=== PATIENT | male | born 1960 ===

== ENCOUNTER 2021-08-14 13:08 | Emergency (ER) | payer MEDICAID ==
[~2021-08-14] VITALS: Ht 162.6 cm; Wt 72.7 kg
[2021-08-14 13:25] VITALS: TEMP 97.5
[2021-08-14 14:35] LABS: BASO # 0.1 K/mm3 (0.0-0.2); BASO % 1.3 % (0.0-2.0); EOS # 0.2 K/mm3 (0.0-0.7); EOS % 2.5 % (0.0-4.0); GRAN # 2.9 K/mm3 (1.4-6.5); GRAN % 42.6 % (42.2-75.2); HEMOGLOBIN 14.6 g/dl (13.5-18.0); LYMPH # 3.2 K/mm3 (1.2-3.4); MEAN CELL VOLUME 91 fl (80.0-100.0); MEAN CORPUSCULAR HEMOGLOBIN 32 pg (27-31); MEAN CORPUSCULAR HGB CONC 35 g/dl (33.0-37.0); MEAN PLATELET VOLUME 9.6 fl (7.4-10.4); MONO # 0.4 K/mm3 (0.1-0.6); MONO % 6.5 % (1.7-9.3); PLATELET COUNT 179 K/mm3 (130-400); RED BLOOD COUNT 4.62 M/mm3 (4.20-5.60)
[2021-08-14 14:56] LABS: ALBUMIN 4.5 gm/dL (3.4-4.8); BILIRUBIN,TOTAL 0.8 mg/dL (0.2-1.2); CALCIUM 10.4 mg/dL (8.4-10.2); CREATININE, serum 0.71 mg/dL (0.72-1.25); POTASSIUM 4.9 mmol/L (3.5-4.5); TOTAL PROTEIN 8.4 gm/dL (6.2-8.1)
[2021-08-14] MEDS ORDERED: IPRATROPIUM BROM3 M1 IH (15:58)
[2021-08-14] MEDS ORDERED: PREDNISONE20 MG PO (15:58)
[2021-08-14] MEDS ORDERED: SINGULAIR 110 MG/TAB PO (15:58)
[2021-08-14] MEDS ORDERED: VENTOLIN0.09 MG IH (15:58)
[2021-08-14 16:06] VITALS: BP 147/102; PULSE 81
== END 2021-08-14 16:06 | disposition home or self-care (01) ==
LOC: COL.ER 13:08
PROVIDERS: Physician Assistant
DX: J45.901 Unspecified asthma with (acute) exacerbation (principal); Z20.822 Contact with and (suspected) exposure to COVID-19; Z87.891 Personal history of nicotine dependence
CPT/HCPCS: J1100; J7030

== ENCOUNTER 2021-09-05 13:11 | Emergency (ER) | payer MEDICAID ==
[~2021-09-05] VITALS: Ht 162.6 cm; Wt 70.5 kg
[~2021-09-05 13:11] MED LIST: IPRATROPIUM BROM3 M1 IH; PREDNISONE20 MG PO; SINGULAIR 110 MG/TAB PO; VENTOLIN0.09 MG IH
[2021-09-05 13:31] VITALS: TEMP 98.1
[2021-09-05 14:43] LABS: BASO # 0.1 K/mm3 (0.0-0.2); EOS # 0.1 K/mm3 (0.0-0.7); EOS % 0.6 % (0.0-4.0); GRAN % 51.2 % (42.2-75.2); HEMATOCRIT 43.6 % (42.0-52.0); HEMOGLOBIN 15.2 g/dl (13.5-18.0); LYMPH # 3.1 K/mm3 (1.2-3.4); MEAN CELL VOLUME 90 fl (80.0-100.0); MEAN CORPUSCULAR HEMOGLOBIN 32 pg (27-31); MEAN CORPUSCULAR HGB CONC 35 g/dl (33.0-37.0); MEAN PLATELET VOLUME 9.4 fl (7.4-10.4); MONO # 0.5 K/mm3 (0.1-0.6); MONO % 6.9 % (1.7-9.3); PLATELET COUNT 171 K/mm3 (130-400); RED BLOOD COUNT 4.83 M/mm3 (4.20-5.60); REDCELL DISTRIBUTION WIDTH-CV 12.6 % (11.5-14.5)
[2021-09-05 15:03] LABS: ALBUMIN 4.3 gm/dL (3.4-4.8); BILIRUBIN,TOTAL 0.5 mg/dL (0.2-1.2); C-REACTIVE PROTEIN 0.04 mg/dL (0.00-0.50); CALCIUM 10.2 mg/dL (8.4-10.2); CREATININE, serum 0.72 mg/dL (0.72-1.25); MAGNESIUM 1.9 mg/dL (1.6-2.6); POTASSIUM 4.5 mmol/L (3.5-4.5); TOTAL PROTEIN 7.8 gm/dL (6.2-8.1)
[2021-09-05 15:07] LABS: COLLECTION METHOD CLEAN CATCH
[2021-09-05 15:13] LABS: PH 7 (5-8); SQUAMOUS EPITHELIAL None Seen /hpf (0-10); URINE APPEARANCE Clear (CLEAR/HAZY); URINE BACTERIA Rare /hpf (NONE SEEN); URINE BILIRUBIN Negative (NEGATIVE); URINE BLOOD Negative (NEGATIVE); URINE COLOR Yellow (YELLOW); URINE GLUCOSE Negative (NEGATIVE); URINE KETONE Negative (NEGATIVE); URINE LEUKOCYTE ESTERASE Negative (NEGATIVE); URINE NITRATE Negative (NEGATIVE); URINE PROTEIN(semi-quant) Negative (NEGATIVE); URINE RBC 0-2 /hpf (0-2); URINE UROBILINOGEN Negative (NEGATIVE)
[2021-09-05] MEDS ORDERED: PEPCID 20MG TAB20 MG PO (16:54)
[2021-09-05 17:02] VITALS: BP 118/92; PULSE 96
== END 2021-09-05 17:07 | disposition home or self-care (01) ==
LOC: COL.ER 13:11
PROVIDERS: Emergency Medicine
DX: K29.70 Gastritis, unspecified, without bleeding (principal); Z87.891 Personal history of nicotine dependence
CPT/HCPCS: Q9967

== ENCOUNTER 2021-09-15 12:30 | Emergency (ER) | payer MEDICAID ==
[~2021-09-15] VITALS: Ht 162.6 cm; Wt 68.2 kg
[~2021-09-15 12:30] MED LIST changes: +PEPCID 20MG TAB20 MG PO
[2021-09-15 12:57] VITALS: TEMP 97.6
[2021-09-15 13:38] LABS: BASO # 0.1 K/mm3 (0.0-0.2); BASO % 1.2 % (0.0-2.0); EOS # 0.1 K/mm3 (0.0-0.7); GRAN # 4.5 K/mm3 (1.4-6.5); GRAN % 53.5 % (42.2-75.2); HEMATOCRIT 43.4 % (42.0-52.0); LYMPH # 2.9 K/mm3 (1.2-3.4); LYMPH % 34.8 % (20.0-51.0); MEAN CELL VOLUME 91 fl (80.0-100.0); MEAN CORPUSCULAR HEMOGLOBIN 32 pg (27-31); MEAN CORPUSCULAR HGB CONC 35 g/dl (33.0-37.0); MEAN PLATELET VOLUME 9.8 fl (7.4-10.4); MONO # 0.8 K/mm3 (0.1-0.6); MONO % 9.3 % (1.7-9.3); PLATELET COUNT 241 K/mm3 (130-400); RED BLOOD COUNT 4.75 M/mm3 (4.20-5.60); REDCELL DISTRIBUTION WIDTH-CV 12.9 % (11.5-14.5)
[2021-09-15 13:50] LABS: ALANINE AMINOTRANSFERASE 40 U/L (0-55); ALBUMIN 4.5 gm/dL (3.4-4.8); ALKALINE PHOSPHATASE 89 U/L (40-150); ANION GAP 12 mmol/L (7-16); AST,SGOT 45 U/L (5-34); BILIRUBIN,TOTAL 0.7 mg/dL (0.2-1.2); BLOOD UREA NITROGEN 3 mg/dL (8-26); CALCIUM 9.7 mg/dL (8.4-10.2); CARBON DIOXIDE 21 mmol/L (23-31); CHLORIDE 97 mmol/L (98-107); CREATININE, serum 0.74 mg/dL (0.72-1.25); GLUCOSE 115 mg/dL (70-99); LIPASE 27 U/L (8-78); POTASSIUM 4.5 mmol/L (3.5-4.5); SODIUM 130 mmol/L (136-145)
[2021-09-15 13:56] LABS: TROPONIN-I < 0.010 ng/mL (0.00-0.033)
[2021-09-15 14:37] LABS: COLLECTION METHOD RANDOM VOIDED
[2021-09-15 14:54] LABS: PH 8 (5-8); SQUAMOUS EPITHELIAL None Seen /hpf (0-10); URINE APPEARANCE Clear (CLEAR/HAZY); URINE BACTERIA None Seen /hpf (NONE SEEN); URINE BILIRUBIN Negative (NEGATIVE); URINE BLOOD Negative (NEGATIVE); URINE COLOR Straw (YELLOW); URINE GLUCOSE Negative (NEGATIVE); URINE KETONE Negative (NEGATIVE); URINE LEUKOCYTE ESTERASE Negative (NEGATIVE); URINE NITRATE Negative (NEGATIVE); URINE PROTEIN(semi-quant) Negative (NEGATIVE); URINE RBC None Seen /hpf (0-2); URINE UROBILINOGEN Negative (NEGATIVE); URINE WBC 0-2 /hpf (0-2)
[2021-09-15 16:51] VITALS: BP 134/88; PULSE 100
== END 2021-09-15 16:43 | disposition home or self-care (01) ==
LOC: COL.ER 12:30
PROVIDERS: Emergency Medicine
DX: R06.02 Shortness of breath (principal); E87.1 Hypo-osmolality and hyponatremia; R16.0 Hepatomegaly, not elsewhere classified; R07.9 Chest pain, unspecified; R00.0 Tachycardia, unspecified; R10.9 Unspecified abdominal pain; R42 Dizziness and giddiness; Z95.9 Presence of cardiac and vascular implant and graft, unspecified; Z87.891 Personal history of nicotine dependence
CPT/HCPCS: J7030; J7120; J8540; Q9967

== ENCOUNTER 2021-09-20 13:54 | Emergency (ER) | payer MEDICAID ==
[~2021-09-20] VITALS: Ht 162.6 cm; Wt 68.2 kg
[2021-09-20 14:21] VITALS: TEMP 97.8
[2021-09-20 14:58] LABS: BASO # 0.1 K/mm3 (0.0-0.2); EOS # 0.1 K/mm3 (0.0-0.7); EOS % 0.8 % (0.0-4.0); GRAN # 3.8 K/mm3 (1.4-6.5); GRAN % 38.8 % (42.2-75.2); HEMATOCRIT 44.5 % (42.0-52.0); HEMOGLOBIN 15.6 g/dl (13.5-18.0); LYMPH # 4.8 K/mm3 (1.2-3.4); LYMPH % 49.4 % (20.0-51.0); MEAN CELL VOLUME 90 fl (80.0-100.0); MEAN CORPUSCULAR HEMOGLOBIN 32 pg (27-31); MEAN CORPUSCULAR HGB CONC 35 g/dl (33.0-37.0); MEAN PLATELET VOLUME 9.1 fl (7.4-10.4); MONO # 0.9 K/mm3 (0.1-0.6); MONO % 9.5 % (1.7-9.3); PLATELET COUNT 256 K/mm3 (130-400); RED BLOOD COUNT 4.93 M/mm3 (4.20-5.60); REDCELL DISTRIBUTION WIDTH-CV 13.2 % (11.5-14.5)
[2021-09-20 15:17] LABS: ALBUMIN 4.4 gm/dL (3.4-4.8); BILIRUBIN,TOTAL 0.5 mg/dL (0.2-1.2); CALCIUM 9.7 mg/dL (8.4-10.2); CREATININE, serum 0.68 mg/dL (0.72-1.25); POTASSIUM 4.4 mmol/L (3.5-4.5)
[2021-09-20] MEDS ORDERED: ZOFRAN ODT4 MG PO (15:43)
[2021-09-20 16:00] VITALS: BP 140/89; PULSE 78
== END 2021-09-20 16:00 | disposition home or self-care (01) ==
LOC: COL.ER 13:54
PROVIDERS: Personal Emergency Response Attendant
DX: R42 Dizziness and giddiness (principal); R10.9 Unspecified abdominal pain; Z28.310 Unvaccinated for COVID-19
CPT/HCPCS: J2270; J2405; J7030

== ENCOUNTER → 2021-10-09 | Outpatient (CLI) | payer MEDICAID ==
[~2021-10-09] MED LIST changes: +ZOFRAN ODT4 MG PO
[2021-10-11 13:36] LABS: HEPATITIS Be ANTIGEN Negative (Negative)
[2021-10-16 14:56] LABS: HEPATITIS B IU Not Detected IU/mL (<=9); HEPATITIS B LOG IU Not Detected (<=0.99)
== END ==
LOC: COL.LAB 10:08
PROVIDERS: Physician Assistant
DX: B18.2 Chronic viral hepatitis C (principal); R16.0 Hepatomegaly, not elsewhere classified; Z87.898 Personal history of other specified conditions

== ENCOUNTER 2021-11-18 12:09 | Emergency (ER) | payer MEDICAID ==
[~2021-11-18] VITALS: Ht 154.9 cm; Wt 68.2 kg
[2021-11-18 12:26] VITALS: BP 127/82; TEMP 97.5
[2021-11-18 15:00] VITALS: PULSE 80
[2021-11-18] MEDS ORDERED: FLONASEALLERGY NS (15:39)
[2021-11-18] MEDS ORDERED: ZYRTEC 10MG10 MG PO (15:39)
== END 2021-11-18 15:00 | disposition home or self-care (01) ==
LOC: COL.ER 12:09
DX: R51.9 Headache, unspecified (principal); Z85.05 Personal history of malignant neoplasm of liver; Z28.310 Unvaccinated for COVID-19
CPT/HCPCS: J1885

== ENCOUNTER 2022-06-13 14:39 | Emergency (ER) | payer MEDICAID ==
[~2022-06-13] VITALS: Ht 157.5 cm; Wt 69.1 kg
[~2022-06-13 14:39] MED LIST changes: +ALL DAY ALLERGY10 M3 PO; +FLONASEALLERGY NS; +NORVASC 5MG5 MG/TAB PO; +PRIL40 PO; +PROAIR DIGIHAL90 MCG IH; +VITAMIN D 400400 IU PO; +ZYRTEC 10MG10 MG PO
[2022-06-13 14:57] VITALS: TEMP 98.1
[2022-06-13 15:50] LABS: BASO % 0.3 % (0.0-2.0); EOS % 0.3 % (0.0-4.0); GRAN # 6.8 K/mm3 (1.4-6.5); GRAN % 74.2 % (42.2-75.2); HEMATOCRIT 36.7 % (42.0-52.0); HEMOGLOBIN 12.7 g/dl (13.5-18.0); LYMPH # 1.6 K/mm3 (1.2-3.4); MEAN CELL VOLUME 86 fl (80.0-100.0); MEAN CORPUSCULAR HEMOGLOBIN 30 pg (27-31); MEAN CORPUSCULAR HGB CONC 35 g/dl (33.0-37.0); MEAN PLATELET VOLUME 9.5 fl (7.4-10.4); MONO # 0.7 K/mm3 (0.1-0.6); MONO % 7.9 % (1.7-9.3); PLATELET COUNT 185 K/mm3 (130-400); RED BLOOD COUNT 4.26 M/mm3 (4.20-5.60); REDCELL DISTRIBUTION WIDTH-CV 12.4 % (11.5-14.5)
[2022-06-13 16:11] LABS: ALBUMIN 3.3 gm/dL (3.4-4.8); BILIRUBIN,TOTAL 1.5 mg/dL (0.2-1.2); CALCIUM 9.9 mg/dL (8.4-10.2); CREATININE, serum 0.67 mg/dL (0.72-1.25); POTASSIUM 3.9 mmol/L (3.5-4.5); TOTAL PROTEIN 7.9 gm/dL (6.2-8.1)
[2022-06-13 18:51] VITALS: BP 128/91; PULSE 98
== END 2022-06-13 19:01 | disposition home or self-care (01) ==
LOC: COL.ER 14:39
PROVIDERS: Emergency Medicine
DX: E87.1 Hypo-osmolality and hyponatremia (principal); Z85.05 Personal history of malignant neoplasm of liver; Z87.891 Personal history of nicotine dependence; Z20.822 Contact with and (suspected) exposure to COVID-19
CPT/HCPCS: J1885; J7120; Q9967

== ENCOUNTER 2022-08-08 21:02 | Emergency (ER) | payer MEDICAID ==
[~2022-08-08] VITALS: Ht 162.6 cm; Wt 64.5 kg
[~2022-08-08 21:02] MED LIST changes: +CARAFATE S1 GM/10 ML PO
[2022-08-08 21:04] VITALS: TEMP 97.5
[2022-08-08 21:54] LABS: BASO # 0.1 K/mm3 (0.0-0.2); BASO % 1.1 % (0.0-2.0); EOS # 0.4 K/mm3 (0.0-0.7); EOS % 3.5 % (0.0-4.0); GRAN # 5.7 K/mm3 (1.4-6.5); GRAN % 52.5 % (42.2-75.2); HEMATOCRIT 43.7 % (42.0-52.0); HEMOGLOBIN 14.5 g/dl (13.5-18.0); LYMPH # 3.8 K/mm3 (1.2-3.4); LYMPH % 34.8 % (20.0-51.0); MEAN CELL VOLUME 84 fl (80.0-100.0); MEAN CORPUSCULAR HEMOGLOBIN 28 pg (27-31); MEAN CORPUSCULAR HGB CONC 33 g/dl (33.0-37.0); MEAN PLATELET VOLUME 9.8 fl (7.4-10.4); MONO # 0.8 K/mm3 (0.1-0.6); MONO % 7.8 % (1.7-9.3); PLATELET COUNT 323 K/mm3 (130-400); RED BLOOD COUNT 5.19 M/mm3 (4.20-5.60); REDCELL DISTRIBUTION WIDTH-CV 13.4 % (11.5-14.5)
[2022-08-08 22:09] LABS: ALBUMIN 4.3 gm/dL (3.4-4.8); BILIRUBIN,TOTAL 0.7 mg/dL (0.2-1.2); CALCIUM 11.1 mg/dL (8.4-10.2); CREATININE, serum 0.77 mg/dL (0.72-1.25); POTASSIUM 4.6 mmol/L (3.5-4.5); TOTAL PROTEIN 9.1 gm/dL (6.2-8.1)
[2022-08-09] MEDS ORDERED: CARAFATE 1GM1 G PO (00:43)
[2022-08-09] MEDS ORDERED: PEPCID 20MG TAB20 MG PO (00:43)
[2022-08-09] MEDS ORDERED: NORCO 325 MG-51 TAB PO (00:43)
[2022-08-09 01:03] VITALS: BP 128/85; PULSE 98
== END 2022-08-09 01:03 | disposition home or self-care (01) ==
LOC: COL.ER 21:02
PROVIDERS: Emergency Medicine
DX: R10.84 Generalized abdominal pain (principal); R74.01 Elevation of levels of liver transaminase levels; R74.8 Abnormal levels of other serum enzymes; Z85.05 Personal history of malignant neoplasm of liver
CPT/HCPCS: J2270; J2405; Q9967